=== PATIENT | female | born 1955 | race Caucasian/White ===

== ENCOUNTER 2019-02-19 22:29 | Observation (INO) | payer MEDICARE, OTHER, SELFPAY ==
--- NOTE | 2019-02-19 22:30 | DI.RAD.S_ITS ---
PROCEDURE: XR CHEST 1V INDICATIONS: chest pain TECHNIQUE: One view of the chest was acquired. COMPARISON: None. FINDINGS: Surgical changes and devices: None. Lungs and pleura: There is a calcified nodule in the left upper lung zone, compatible with an old granuloma. Lungs are clear. No pleural effusions or pneumothorax. Mediastinum: Mediastinal contours appear normal. Heart size is normal. Bones and chest wall: No suspicious bony lesions. Overlying soft tissues appear unremarkable. IMPRESSION: 1. No acute cardiac pulmonary disease. 2. An old granuloma in the left upper lung zone. Dictated by: Keiry Glez M.D. on 02/20/2019 at 8:22 Approved by: Keiry Glez M.D. on 02/20/2019 at 8:24
[2019-02-19 22:37] VITALS: BP 125/98; PULSE 92; RESP 24; TEMP 37.1; O2SAT 98; BMI 26.3
--- NOTE | 2019-02-19 22:54 | ED_ITS ---
HPI - Chest Pain General Chief Complaint: Chest Pain Stated Complaint: Chest pain, SOB Time Seen by Provider: 02/19/19 22:29 Source: patient, family and EMS Mode of arrival: EMS Limitations: no limitations History of Present Illness HPI narrative: 63-year-old female former smoker with history of hypertension presents by EMS for evaluation of fatigue, shortness of breath palpitations and chest pain. She had some episodes yesterday and then felt a bit better over the course of the day. Her symptoms returned again this afternoon at which point she called EMS for transport. She has a history of hypertension and hypothyroidism and stopped taking her medications. She denies any nausea, vomiting or diarrhea. She has had no fever or chills. she complains of episodes of periodic chest pressure and discomfort, primarily retrosternal and without provocation or palliation. The most recent 1 was just prior to her arrival MD complaint: chest pain Onset (ago): minute(s) Duration: intermittent Onset: during exertion Pain location: substernal Severity: moderate Quality: tightness and heaviness Pain radiation: none Relieving factors: nothing Exacerbating factors: nothing Associated symptoms: palpitations Treatments prior to arrival chest pain: none Related Data On Oral Contraceptives: No Home Medications Medication Instructions Recorded Confirmed enalapril-hydrochlorothiazide 1 tab PO DAILY 02/19/19 02/19/19 Allergies Allergy/AdvReac Type Severity Reaction Status Date / Time No Known Drug Allergies Allergy Verified 02/19/19 22:47 Review of Systems Constitutional Denies chills, Denies fever(s), Denies lethargy and Reports weakness Eyes Denies change in vision, Denies eye discharge, Denies irritation and Denies loss of vision ENT Ears, Nose, Mouth, and Throat: Denies change in voice, Denies neck pain and Denies sore throat Cardiovascular Reports chest pain, Denies irregular heart rhythm, Denies lightheadedness, Reports palpitations, Reports dyspnea, Denies dyspnea on exertion and Denies ort hopnea Respiratory Denies cough, Reports dyspnea, Denies dyspnea on exertion and Denies wheezing Gastrointestinal Gastrointestinal: Denies abdominal pain, Denies change in bowel habits, Denies diarrhea, Denies nausea and Denies vomiting Genitourinary Denies hematuria, Denies flank pain, Denies urinary incontinence and Denies urinary urgency Musculoskeletal Denies neck pain Integumentary/Breasts Denies pruritus, Denies erythema, Denies rash and Denies wounds Neurologic Denies confusion, Denies loss of vision and Reports weakness Psychiatric Denies anxiety, Denies confusion, Denies depression, Denies homicidal ideation and Denies suicidal ideation Endocrine Reports palpitations Hematologic/Lymphatic Denies easy bruising Allergic/Immunologic Denies wheezing [facility] Medical History (Updated 02/20/19 @ 02:02 by BALJINDER Kong) Pre-diabetes (Suspected) Acute hypokalemia (Acute) Essential hypertension (Chronic) Hypothyroid (Chronic) Hyperlipidemia (Chronic) Chest pain (Acute) Family History (Updated 02/20/19 @ 01:40 by BALJINDER Kong) Father No problems noted. Mother No problems noted. Sister Hypertension Social History household members: spouse and children Smoking Status: Former smoker Family History (Updated 02/20/19 @ 01:40 by BALJINDER Kong) Father No problems noted. Mother No problems noted. Sister Hypertension Social History household members: spouse and children Smoking Status: Former smoker Exam Narrative Exam Narrative: GENERAL: A 63-year-old female appears stated age, she is alert and oriented and obviously a bit anxious, speaking rapidly HEAD: Atraumatic. Normocephalic. No temporal or scalp tenderness. EYES: Pupils equal round and reactive. Extraocular motions intact. No scleral icterus. No injection or drainage. ENT: Nose without bleeding, purulent drainage or septal hematoma. Throat without erythema, tonsillar hypertrophy or exudate. Uvula midline. Airway patent. NECK: Trachea midline. No JVD or lymphadenopathy. Supple, nontender, no meningeal signs. CARDIOVASCULAR: Regular rate and rhythm without murmurs, gallops, or rubs. RESPIRATORY: Clear to auscultation. Breath sounds equal bilaterally. No wheezes, rales, or rhonchi. GASTROINTESTINAL: Abdomen soft, non-tender, nondistended. No hepato- splenomegaly, or palpable masses. No guarding. EXTREMITIES: No clubbing, cyanosis, or edema. No joint tenderness, effusion, or edema noted. BACK: Nontender without deformity or crepitance. No flank tenderness. NEURO: AOx3. SKIN: No rash or erythema. Initial Vital Signs Initial Vital Signs: Vital Signs Temperature 98.8 F 02/19/19 22:37 Pulse Rate 92 H 02/19/19 22:37 Respiratory Rate 24 02/19/19 22:37 Blood Pressure 125/98 H 02/19/19 22:37 Pulse Oximetry 98 02/19/19 22:37 Course Orders Ordered: ED Orders 02/19/19 22:30 XR chest 1V Stat EKG-12 Lead Stat 02/19/19 22:40 TSH [Thyroid Stimulating Hormone] Stat 02/19/19 22:46 Complete Blood Count AUTO DIFF Stat Comprehensive Metabolic Panel Stat Lipase Stat Magnesium Stat Troponin & CK Cardiac Panel Stat 02/20/19 NM exercise treadmill non nuc Routine Add on Lab Tests Stat 02/20/19 01:06 Education, smoking cessation ONGOING 02/20/19 01:09 Consult to Cardiology Routine 02/20/19 01:15 Troponin I Q6H 02/20/19 06:00 Complete Blood Count AUTO DIFF Routine Comprehensive Metabolic Panel Routine Lipid Panel Routine Magnesium Routine TSH w/ Reflex to FT4 Routine Aspirin (Aspirin Ec) 81 mg PO DAILY ENZO Enoxaparin Sodium (Lovenox) 40 mg SUBCUT DAILY ENZO Sodium Chloride (Normal Saline 0.9%) 1,000 mls @ 150 mls/hr IV CONT ENZO Last Infusion: 02/20/19 01:05 Dose: 0 mls/hr Admin: 02/19/19 22:57 Dose: 150 mls/hr Morphine Sulfate (Morphine) 2 mg IV Q5MIN PRN PRN Reason: Chest Pain Nitroglycerin (Nitrostat) 0.4 mg SL Q1PACV9 PRN PRN Reason: Chest Pain Ondansetron HCl (Zofran Odt) 4 mg PO Q8HR PRN PRN Reason: Nausea And Vomiting Discontinued Medications Aspirin (Aspirin Chew) 324 mg PO NOW ONE Stop: 02/19/19 22:30 Last Admin: 02/19/19 22:53 Dose: Not Given Potassium Chloride 40 meq/ (Sodium Chloride) 520 mls @ 130 mls/hr IV NOW ONE Stop: 02/20/19 03:21 Last Infusion: 02/20/19 00:20 Dose: 65 mls/hr Admin: 02/19/19 23:46 Dose: 130 mls/hr Potassium Chloride (Potassium Chloride) 40 meq PO NOW ONE Stop: 02/19/19 23:23 Last Admin: 02/19/19 23:35 Dose: 40 meq Reevaluation(s) Reevaluation #1: The patient continues to be largely asymptomatic during the visit in the emergency department Consultations Consultation #1: Hospitalist is happy to accept this patient Vital Signs - 8 hr 02/19/19 22:37 02/20/19 00:05 02/20/19 00:51 Temperature 98.8 F Pulse Rate 92 H 87 88 Respiratory Rate 24 14 14 Blood Pressure 125/98 H Blood Pressure [Left Arm] 119/97 H 116/68 Pulse Oximetry 98 99 96 02/20/19 01:11 02/20/19 01:20 02/20/19 01:44 Temperature 97.7 F Pulse Rate 87 81 Respiratory Rate 14 19 Blood Pressure 121/69 167/73 H Blood Pressure [Left Arm] Pulse Oximetry 100 98 96 MDM - Chest Pain Lab Data Attestation: I reviewed the patient's lab results. Result diagrams: 02/19/19 22:46 02/19/19 22:46 Lab Results 02/19/19 02/19/19 02/19/19 Range/Units 22:40 22:46 22:46 WBC 9.5 (4.5-11.0) X10^3/uL RBC 4.71 (4.0-5.2) X10^6/uL Hgb 14.3 (12.0-16.0) g/dL Hct 41.5 (36-46) % MCV 88.1 (80-100) fL MCH 30.3 (26-34) PG MCHC 34.4 (30-36) % RDW 13.0 (11.6-14.8) % Plt Count 342 (150-400) X10^3/uL Neut % (Auto) 54.9 (50-75) % Lymph % (Auto) 35.5 (25-40) % [place] % (Auto) 6.4 (3-14) % Eos % (Auto) 1.6 L (2-4) % Baso % (Auto) 1.6 (0-2) % Neut # (Auto) 5200 (8425-3144) /uL Lymph # (Auto) 3400 (5267-6589) /uL [place] # (Auto) 600 (0-900) /uL Eos # (Auto) 200 (0-450) /uL Baso # (Auto) 100 (0-100) /uL Sodium 136 L (137-145) mmol/L Potassium 2.5 L* (3.4-5.1) mmol/L Chloride 97 L (98-107) mmol/L Carbon Dioxide 25 (22-32) mmol/L BUN 28 H (7-17) mg/dL Creatinine 1.30 H (0.52-1.04) mg/dL Estimated GFR 41.1 L (>60) mL/min BUN/Creatinine Ratio 21.5 (6-22) Glucose 106 (80-110) mg/dL Calcium 10.6 H (8.4-10.2) mg/dL Magnesium (1.6-2.3) mg/dL Total Bilirubin 0.5 (0.2-1.3) mg/dL AST 29 (14-36) IU/L ALT 33 (9-52) IU/L Alkaline Phosphatase 117 (38-126) U/L Total Creatine Kinase 61 (30-135) U/L CK-MB (CK-2) TNP CK-MB (CK-2) Rel Index TNP Troponin I < 0.012 (0.01-0.034) ng/mL Total Protein 8.3 H (6.3-8.2) g/dL Albumin 4.7 (3.5-5.0) g/dL Globulin 3.6 (1.7-4.1) g/dL Albumin/Globulin Ratio 1.3 (1.0-2.8) Lipase 265 (23-300) U/L TSH 3.88 (0.47-4.68) uIU/mL 02/19/19 Range/Units 22:46 WBC (4.5-11.0) X10^3/uL RBC (4.0-5.2) X10^6/uL Hgb (12.0-16.0) g/dL Hct (36-46) % MCV (80-100) fL MCH (26-34) PG MCHC (30-36) % RDW (11.6-14.8) % Plt Count (150-400) X10^3/uL Neut % (Auto) (50-75) % Lymph % (Auto) (25-40) % [place] % (Auto) (3-14) % Eos % (Auto) (2-4) % Baso % (Auto) (0-2) % Neut # (Auto) (6252-7122) /uL Lymph # (Auto) (4606-5360) /uL [place] # (Auto) (0-900) /uL Eos # (Auto) (0-450) /uL Baso # (Auto) (0-100) /uL Sodium (137-145) mmol/L Potassium (3.4-5.1) mmol/L Chloride (98-107) mmol/L Carbon Dioxide (22-32) mmol/L BUN (7-17) mg/dL Creatinine (0.52-1.04) mg/dL Estimated GFR (>60) mL/min BUN/Creatinine Ratio (6-22) Glucose (80-110) mg/dL Calcium (8.4-10.2) mg/dL Magnesium 1.9 (1.6-2.3) mg/dL Total Bilirubin (0.2-1.3) mg/dL AST (14-36) IU/L ALT (9-52) IU/L Alkaline Phosphatase (38-126) U/L Total Creatine Kinase (30-135) U/L CK-MB (CK-2) CK-MB (CK-2) Rel Index Troponin I (0.01-0.034) ng/mL Total Protein (6.3-8.2) g/dL Albumin (3.5-5.0) g/dL Globulin (1.7-4.1) g/dL Albumin/Globulin Ratio (1.0-2.8) Lipase (23-300) U/L TSH (0.47-4.68) uIU/mL Imaging Data Chest x-ray: Attestation: I personally reviewed and interpreted this imaging study as follows: My impression: NAP ECG Data Attestation: I personally reviewed and interpreted this ECG as follows: Prior ECG tracings: not available for review Interpretation: EKG is normal sinus rhythm rate [86 ] and free of any signs of ischemia or ectopy. No ST segmental elevation or depression. No T wave inversions. Short GA 116 Discharge Plan Departure Patient Disposition: Admitted As Inpatient Clinical Impression: Acute hypokalemia, Chest pain Discharge Date/Time: 02/20/19 01:12 Interventions: ED Discharge Assessment Last Done: 02/20/19 01:11 Admit Date/Time: 02/20/19 00:25 Admit Provider: Kelley Conde
[2019-02-19] MEDS: SODIUM CHLORIDE 0.9% 1,000 ML 150 ML IV (22:57)
[2019-02-19 22:59] LABS: Add Manual Diff / Slide Review NO; Basophils Absolute Auto 100 /uL (0-100); Basophils Percent Auto 1.6 % (0-2); Eosinophils Absolute Auto 200 /uL (0-450); Eosinophils Percent Auto 1.6 % (2-4); Hematocrit 41.5 % (36-46); Hemoglobin 14.3 g/dL (12.0-16.0); Lymphocytes Absolute Auto 3400 /uL (1100-4500); Lymphocytes Percent Auto 35.5 % (25-40); Mean Corpuscular HGB Conc 34.4 % (30-36); Mean Corpuscular Hemoglobin 30.3 PG (26-34); Mean Corpuscular Volume 88.1 fL (80-100); Monocytes Absolute Auto 600 /uL (0-900); Monocytes Percent Auto 6.4 % (3-14); Neutrophils Absolute Auto 5200 /uL (1500-7000); Neutrophils Percent Auto 54.9 % (50-75); Platelet Count 342 X10^3/uL (150-400); Red Blood Cell Count 4.71 X10^6/uL (4.0-5.2); White Blood Cell Count 9.5 X10^3/uL (4.5-11.0)
[2019-02-19 23:13] LABS: Alanine Aminotransferase 33 IU/L (9-52); Albumin 4.7 g/dL (3.5-5.0); Albumin Globulin Ratio 1.3 (1.0-2.8); Alkaline Phosphatase 117 U/L (38-126); Aspartate Aminotransferase 29 IU/L (14-36); BUN Creatinine Ratio 21.5 (6-22); Bilirubin Total 0.5 mg/dL (0.2-1.3); Blood Urea Nitrogen 28 mg/dL (7-17); Calcium 10.6 mg/dL (8.4-10.2); Carbon Dioxide 25 mmol/L (22-32); Chloride 97 mmol/L (98-107); Creatine Kinase 61 U/L (30-135); Estimated Glomerular Filt Rate 41.1 mL/min (>60); Globulin 3.6 g/dL (1.7-4.1); Glucose 106 mg/dL (80-110); HEMOLYSIS < 15 (0-50); Lipase 265 U/L (23-300); Sodium 136 mmol/L (137-145); Total Protein 8.3 g/dL (6.3-8.2)
[2019-02-19 23:16] LABS: Potassium 2.5 mmol/L (3.4-5.1)
[2019-02-19 23:24] LABS: Troponin I < 0.012 ng/mL (0.01-0.034)
[2019-02-19] MEDS: POTASSIUM CHLORIDE 20 MEQ/15 ML UDC 40 MEQ PO (23:35)
[2019-02-19 23:43] LABS: Thyroid Stimulating Hormone 3.88 uIU/mL (0.47-4.68)
[2019-02-19 23:43] LABS: Magnesium 1.9 mg/dL (1.6-2.3)
[2019-02-19] MEDS: POTASSIUM CHLORIDE 40 MEQ in SODIUM CHLORIDE 0.9% 500 ML 130 ML IV (23:46)
[2019-02-20] VITALS (9 sets, daily range): BP systolic 107–167; BP diastolic 51–97; PULSE 75–89; RESP 14–19; TEMP 36.1–36.8; O2SAT 94–100; BMI 26.3
--- NOTE | 2019-02-20 01:04 | PM.HP.1 ---
History of Present Illness Date Patient Seen: 02/20/19 Time Patient Seen: 00:30 Chief complaint: Chest pain, SOB Narrative: Carmina Maldonado is a very pleasant 63-year-old female who presented today with an approximate 2 day history of chest pressure, palpitations, fatigue, and shortness of breath. She states that she has been completing house renovation and for the past 2 days has been unpacking removing boxes around. She also stated that she felt dizzy,felt like she was passing out, and felt like she was just not feeling right. She describes the pain as this primarily pressure rating it at a level 1 or less. She also felt like when she was breathing that sometime she was unable to stand up. She also states she has been drinking a lot a water. Approximately a month ago she was feeling like she got very dehydrated. This incident likely precipitated her drinking a lot of fluids. Patient is only taking enalapril/hydrochlorothiazide for blood pressure. She has previously been written for levothyroxine and Crestor. She states that she was considered to be prediabetic and was taking metformin 500 mg twice daily. She states she has had an intentional weight loss of 40 lb in the last 6 months. In the emergency department she was found to be profoundly hypokalemic with a potassium of 2.5. She was replaced with both oral and IV potassium 40 mEq each totaling 80 mEq. Patient History Medical History (Updated 02/20/19 @ 02:02 by BALJINDER Kong) Pre-diabetes (Suspected) Acute hypokalemia (Acute) Essential hypertension (Chronic) Hypothyroid (Chronic) Hyperlipidemia (Chronic) Chest pain (Acute) Family History (Updated 02/20/19 @ 01:40 by BALJINDER Kong) Father No problems noted. Mother No problems noted. Sister Hypertension Social History Smoking Status: Former smoker Family & Social History Family History (Updated 02/20/19 @ 01:40 by BALJINDER Kong) Father No problems noted. Mother No problems noted. Sister Hypertension Safety & Behavioral: Feels Safe in Current Yes Environment Tobacco & Substance use: Smoking Status Former smoker alcohol intake frequency 0-2 drinks per day Substance Use Type does not use Meds Home Medications Medication Instructions Recorded Confirmed Type enalapril-hydrochlorothiazide 1 tab PO DAILY 02/19/19 02/19/19 History Allergies Allergy/AdvReac Type Severity Reaction Status Date / Time No Known Drug Allergies Allergy Verified 02/19/19 22:47 Review of Systems Review of Systems Patient denies any vision changes, difficulty swallowing, nausea and vomiting, abdominal pain, dysuria, diarrhea or constipation, skin rashes or lesions, numbing and tingling or loss of sensation, depression or anxiety, easy bruising with bleeding. Exam Vital Signs (past 8 hours): - 02/19/19 22:37 Temperature 98.8 F Pulse Rate 92 H Respiratory Rate 24 Blood Pressure 125/98 H Pulse Oximetry 98 Oxygen Delivery Method Room Air Narrative Exam Narrative: General: Alert oriented well developed 63-year-old female, in no distress, she is quite talkative. HEENT: Head is normocephalic atraumatic Eyes: Conjunctiva is clear sclera nonicteric Neck: Supple, no JVD, full range of motion Respirations: Lung sounds are clear to auscultation bilaterally no wheezes or rhonchi CV: Regular rate and rhythm, no murmur auscultated, no rubs Abdomen: Soft and nontender with normoactive bowel tones Skin: Evidence of significant sun exposure, no lesions or rashes Neuro: Normal tactile sensitivity, alert and oriented x4, no focal deficits Extremities: Patient is ambulatory moving all 4 extremities Psych: Normal mood and affect Objective Labs Result Diagrams: 02/19/19 22:46 02/19/19 22:46 Labs: Laboratory Results - last 24 hr 02/19/19 02/19/19 02/19/19 22:40 22:46 22:46 WBC 9.5 RBC 4.71 Hgb 14.3 Hct 41.5 MCV 88.1 MCH 30.3 MCHC 34.4 RDW 13.0 Plt Count 342 Neut % (Auto) 54.9 Lymph % (Auto) 35.5 [place] % (Auto) 6.4 Eos % (Auto) 1.6 L Baso % (Auto) 1.6 Neut # (Auto) 5200 Lymph # (Auto) 3400 [place] # (Auto) 600 Eos # (Auto) 200 Baso # (Auto) 100 Sodium 136 L Potassium 2.5 L* Chloride 97 L Carbon Dioxide 25 BUN 28 H Creatinine 1.30 H Estimated GFR 41.1 L BUN/Creatinine Ratio 21.5 Glucose 106 Calcium 10.6 H Magnesium Total Bilirubin 0.5 AST 29 ALT 33 Alkaline Phosphatase 117 Total Creatine Kinase 61 CK-MB (CK-2) TNP CK-MB (CK-2) Rel Index TNP Troponin I < 0.012 Total Protein 8.3 H Albumin 4.7 Globulin 3.6 Albumin/Globulin Ratio 1.3 Lipase 265 TSH 3.88 02/19/19 22:46 WBC RBC Hgb Hct MCV MCH MCHC RDW Plt Count Neut % (Auto) Lymph % (Auto) [place] % (Auto) Eos % (Auto) Baso % (Auto) Neut # (Auto) Lymph # (Auto) [place] # (Auto) Eos # (Auto) Baso # (Auto) Sodium Potassium Chloride Carbon Dioxide BUN Creatinine Estimated GFR BUN/Creatinine Ratio Glucose Calcium Magnesium 1.9 Total Bilirubin AST ALT Alkaline Phosphatase Total Creatine Kinase CK-MB (CK-2) CK-MB (CK-2) Rel Index Troponin I Total Protein Albumin Globulin Albumin/Globulin Ratio Lipase TSH Assessment & Plan (1) Chest pain: Problem details: Patient is placed under observation for chest pain rule out. Cardiology consult is ordered and appreciated Troponins will be trended over night q.6 hours Aspirin 81 mg p.o. daily has been ordered Stress test Sagar protocol has been ordered for the morning Current visit: Yes Status: Acute (2) Hyperlipidemia: Problem details: Fasting lipid panel in the morning Current visit: Yes Status: Chronic (3) Hypothyroid: Problem details: TSH with reflex to T4 ordered for the morning Current visit: Yes Status: Chronic (4) Essential hypertension: Problem details: Enalapril hydrochlorothiazide is currently held. If she has a negative stress test and troponins would recommend an CATE inhibitor or ARB on discharge. Current visit: Yes Status: Chronic (5) Acute hypokalemia: Problem details: CMP in the a.m., replete if necessary. Current visit: Yes Status: Acute (6) Pre-diabetes: Problem details: Added on a hemoglobin A1c to her labs drawn in the ED. Current visit: Yes Status: Suspected (7) Observation for suspected condition: Problem details: Patient is placed into observation status. FEN: Heart healthy diet, IV saline lock, electrolytes in the a.m.. Code status: Full Code DVT prophylaxis: Enoxaparin 40 mg once daily Discussed with: Dr. Maurilio Paniagua, ED Time for admission: 75 minutes Current visit: Yes Status: Acute Scores CHADS-VASc Congestive heart failure: no Hypertension: yes Age 75 years or older: no Diabetes mellitus: no Stroke, TIA, or TE: no Vascular disease: no Age 65 to 74 years: yes Sex category (female): Female CHADS-VASc Score: 3 Quality AMI Clinical Trial Participant: No VTE Deep Vein Thrombosis/Pulmonary Embolism Present on Admission: No
--- NOTE | 2019-02-20 02:56 | PC.NURSE ---
63 years old female admitted to room 223 from ED via WC. Diagnosed with Hypokalemia, currently 40 meq K-riders infusing @ 65 cc/hr from ER. Pt. C/O of her IV site discomfort, no edema or erythema noted. Placed ice pack for 5 mins. & placed a warm compress & she reported IV site discomfort is gone.
--- NOTE | 2019-02-20 03:12 | PC.NURSE ---
0250 Increased infusion rate to 100 cc/hr & rechecked her again @ 0310 denies any discomfort to IV site. Infusion rate increased to full rate @ 130 cc/hr. Verified with Kaitlin Marx RN. Pt. oriented to her room upon admission,showed how to used her call light, TV & bed controls & encouraged to call staff for any assistance to the BR. Tele placed & NPO except water for Lipid Panel draw this morning. Denies any dyspnea, no SOB noted & no C/O CP. Will cont. POC & monitor.
[2019-02-20 06:16] LABS: Alanine Aminotransferase 30 IU/L (9-52); Albumin Globulin Ratio 1.3 (1.0-2.8); Alkaline Phosphatase 92 U/L (38-126); Aspartate Aminotransferase 25 IU/L (14-36); BUN Creatinine Ratio 21.8 (6-22); Bilirubin Total 0.5 mg/dL (0.2-1.3); Blood Urea Nitrogen 24 mg/dL (7-17); Calcium 9.3 mg/dL (8.4-10.2); Carbon Dioxide 24 mmol/L (22-32); Chloride 104 mmol/L (98-107); Estimated Glomerular Filt Rate 49.8 mL/min (>60); Globulin 3.1 g/dL (1.7-4.1); Glucose 102 mg/dL (80-110); HEMOLYSIS < 15 (0-50); Magnesium 1.9 mg/dL (1.6-2.3); Potassium 3.7 mmol/L (3.4-5.1); Sodium 139 mmol/L (137-145); Total Protein 7.1 g/dL (6.3-8.2)
[2019-02-20 06:18] LABS: Add Manual Diff / Slide Review NO; Basophils Absolute Auto 0 /uL (0-100); Basophils Percent Auto 0.7 % (0-2); Eosinophils Absolute Auto 200 /uL (0-450); Eosinophils Percent Auto 3.2 % (2-4); Hematocrit 37.2 % (36-46); Hemoglobin 12.8 g/dL (12.0-16.0); Lymphocytes Absolute Auto 2700 /uL (1100-4500); Lymphocytes Percent Auto 41.5 % (25-40); Mean Corpuscular HGB Conc 34.4 % (30-36); Mean Corpuscular Hemoglobin 30.3 PG (26-34); Monocytes Absolute Auto 500 /uL (0-900); Monocytes Percent Auto 7.6 % (3-14); Neutrophils Absolute Auto 3000 /uL (1500-7000); Platelet Count 294 X10^3/uL (150-400); Red Blood Cell Count 4.23 X10^6/uL (4.0-5.2); Red Cell Distribution Width 13.1 % (11.6-14.8); White Blood Cell Count 6.4 X10^3/uL (4.5-11.0)
--- NOTE | 2019-02-20 06:47 | PC.NURSE ---
Pt. reported only taking blood pressure meds. not taking her Metformin, Synthroid & Statins anymore. Bottles of her meds. in her room's closet. Declined to put her medications in the night pharmacy, instructed not to take her own home meds. She promised not to take her own pills. Will report to day RN.
[2019-02-20 06:48] LABS: Cholesterol 240 mg/dL (140-199); HDL Cholesterol 39 mg/dL (40-60); LDL Cholesterol Calculated 165 mg/dL (<100); Triglycerides 178 mg/dL (35-150)
[2019-02-20 07:10] LABS: Troponin I < 0.012 ng/mL (0.01-0.034)
[2019-02-20 07:27] LABS: Hemoglobin A1C% w Est Avg Glu 5.8 % (4.0-6.0)
[2019-02-20 08:11] LABS: Free T4, Direct Thyroxine 1.43 ng/dL (0.78-2.19)
[2019-02-20 09:16] LABS: TSH w/ Reflex to FT4 6.66 uIU/mL (0.47-4.68)
[2019-02-20] MEDS: ASPIRIN EC 81 MG TABLET PO (09:47)
[2019-02-20] MEDS: ENOXAPARIN 40 MG/0.4 ML SYRINGE SUBCUT (09:47)
[2019-02-20 11:50] LABS: Troponin I < 0.012 ng/mL (0.01-0.034)
[2019-02-20 12:09] LABS: RBC Urine None Seen (0-5/HPF)
--- NOTE | 2019-02-20 12:13 | PM.TREADMILL ---
Cardiac Stress Test Report Referral & Results Date Patient Seen: 02/20/19 Time Patient Seen: 12:13 Requesting provider: Kelley Conde Indication: Chest discomfort Rest ECG: Unremarkable Procedure Note: Today following both written and verbal informed consent, the patient was exercised according to a standard Sagar protocol. The patient exercised for a total of 6 minutes 29 seconds achieving a maximum heart rate of 138. Patient's maximum systolic blood pressure was 172. This was an estimated 7.[address]-T segment changes identified Normal heart rate and blood pressure response to exercise Functional aerobic impairment rated 0 on the active scale No dysrhythmia Impression: No evidence of ischemia Average exercise capacity Please note: Actual ECG tracings can be found in the PACS system.
[2019-02-20 12:22] LABS: Appearance Urine UA CLEAR; Bilirubin Urine UA NEGATIVE (NEGATIVE); Color Urine UA YELLOW; Glucose Urine UA NEGATIVE (Negative); Ketones Urine UA NEGATIVE (NEGATIVE); Leukocyte Esterase Urine UA NEGATIVE (NEGATIVE); Nitrite Urine UA NEGATIVE (Negative); Occult Blood Urine UA NEGATIVE (Negative); Protein Urine UA NEGATIVE (Negative); Specific Gravity Urine UA 1.015 (1.000-1.035); Urobilinogen Urine UA 0.2 E.U./dL (0.2); pH Urine UA 5.5 (4.5-8.0)
[2019-02-20 12:33] LABS: Bacteria Urine Many (>30); Culture Indicated Urine Cult Not Indicated; Squamous Epithelial Cell Urine 0-1 /HPF; WBC Urine 0-1/HPF (0-5/HPF)
--- NOTE | 2019-02-20 12:54 | P.DS_ITS ---
History of Present Illness Date Patient Seen: 02/20/19 Chief complaint: Chest pain, SOB Narrative: Written by Kelley GALE: Carmina Maldonado is a very pleasant 63-year-old female who presented today with an approximate 2 day history of chest pressure, palpitations, fatigue, and shortness of breath. She states that she has been completing house renovation and for the past 2 days has been unpacking removing boxes around. She also stated that she felt dizzy,felt like she was passing out, and felt like she was just not feeling right. She describes the pain as this primarily pressure rati ng it at a level 1 or less. She also felt like when she was breathing that sometime she was unable to stand up. She also states she has been drinking a lot a water. Approximately a month ago she was feeling like she got very dehydrated. This incident likely precipitated her drinking a lot of fluids. Patient is only taking enalapril/hydrochlorothiazide for blood pressure. She has previously been written for levothyroxine and Crestor. She states that she was considered to be prediabetic and was taking metformin 500 mg twice daily. She states she has had an intentional weight loss of 40 lb in the last 6 months. In the emergency department she was found to be profoundly hypokalemic with a potassium of 2.5. She was replaced with both oral and IV potassium 40 mEq each totaling 80 mEq. Discharge Providers Date of admission: 02/20/19 00:25 Discharge Date: 02/20/19 Discharge provider: Sherry Floyd DO Summary Discharge Diagnosis: 1. Symptomatic hypokalemia with chest pressure, present on admission. Resolved. 2. Hypertension, chronic, present on admission. Stable. 3. Hyperlipidemia, chronic, present on admission. Stable. 4. Prediabetes, chronic, present on admission. Stable. 5. History of hypothyroidism. 6. Possible obstructive sleep apnea, chronic, present on admission. Stable. Hospital Course: Carmina Maldonado is a very pleasant 63-year-old female with a past medical history significant for hypertension, hyperlipidemia, prediabetes, and hypothyroidism who presented for approximate 2 day history of chest pressure, palpitations, fatigue, and shortness of breath. 1. Symptomatic hypokalemia with chest pressure, present on admission. Resolved. -Cardiac risk factors include: Hypertension, hyperlipidemia, prediabetes, stress, significant family history, former smoker, and possible obstructive sleep apnea. -Patient had significantly low potassium at 2.5 with 2 days of chest pressure, palpitations, shortness of breath , nonspecific neurological findings, muscle cramps, and fatigue. -Repleted potassium with potassium chloride 40 mEq IV and PO. Repeat potassium 3.7. Magnesium within normal limits at 1.9. -Discontinued hydrochlorothiazide/enalapril and continued only enalapril 10 mg daily. -Discussed potassium rich foods and recommended adding fiber to diet to bulk stool as she has IBS diarrhea type. -Ordered lab work with [facility] in 3-5 days to recheck potassium level. -Serial troponin x3 negative. EKG normal sinus rhythm without acute ischemic changes such as ST elevation or depression. Monitored on telemetry without ectopy. Exercise stress test demonstrated good exercise capacity without ischemic changes. -Continued aspirin 81 mg daily and restarted atorvastatin 40 mg daily at bedtime. Patient has previously been on statin without complication. Monitor LFTs in 4-6 weeks. 2. Hypertension, chronic, present on admission. Stable. -Discontinued combination antihypertensive as above. Continue on enalapril 10 mg daily. 3. Hyperlipidemia, chronic, present on admission. Stable. -Fasting lipid panel demonstrated: Total cholesterol 240, triglycerides 178, LDL 165 (goal < 100), and HDL 39. -Restarted toward a statin 40 mg daily at bedtime. 4. Prediabetes, chronic, present on admission. Stable. -Hemoglobin A1c 5.8% -Did not restart metformin for now as patient has IBS diarrhea type and did not want to provoke hypokalemia as above. -Educated the patient extensively regarding lifestyle modification including diet and exercise and spent over 30 minutes. Provided Mediterranean diet handout. 5. History of hypothyroidism. -TSH and free T4 within normal limits. Repeat TSH incidentally elevated several hours later at 6.66 likely hemodilutional. Recommend close outpatient follow-up of thyroid function. 6. Possible obstructive sleep apnea, present on admission. Stable. -Patient snores at night with possible apnea. -Discussed obstructive sleep apnea and undue stress on heart and various consequences. Recommended outpatient sleep study. Status at Discharge Functional status at discharge: independent ambulation Overall status at discharge: patient is back to baseline Exam Vital Signs (past 8 hours): - 02/20/19 05:06 02/20/19 08:00 02/20/19 09:40 Temperature 98.2 F 96.9 F L Pulse Rate 75 78 Respiratory Rate 16 16 Blood Pressure 107/51 L 107/59 L Pulse Oximetry 97 94 95 Oxygen Delivery Method Room Air Oxygen Flow Rate 0 Narrative Exam Narrative: General: Older female lying in bed and in no acute distress, well-developed, we ll-nourished, slightly anxious and very talkative but appropriately interactive. HEENT: Normocephalic, atraumatic. External ears without defect. Pupils equal, round, and reactive to light. Anicteric sclerae, moist conjunctivae, and no lid lag. Neck: Supple with full range of motion. No jugular venous distension. No bruits. No lymphadenopathy or thyromegaly. Cardiovascular: Regular rate and rhythm without murmurs, rubs, or gallops appreciated. Pulmonary: Clear to auscultation bilaterally without crackles, wheezes, or rhonchi. Normal respiratory effort with no use of accessory muscles. Abdomen: Soft, bowel sounds present, nontender, nondistended. No hepatosplenomegaly or masses appreciated. Extremities: No clubbing, cyanosis, or edema. Skin: Normal temperature, turgor, and texture; no rash, ulcers, or subcutaneous nodules appreciated. Neurological: Cranial nerves grossly intact. Psychiatric: Normal mood and affect. Slightly anxious. Alert and oriented to person, place, and time. Objective Labs Result Diagrams: 02/20/19 05:15 02/20/19 05:15 Labs: Laboratory Results - last 24 hr 02/19/19 02/19/19 02/19/19 22:40 22:46 22:46 WBC 9.5 RBC 4.71 Hgb 14.3 Hct 41.5 MCV 88.1 MCH 30.3 MCHC 34.4 RDW 13.0 Plt Count 342 Neut % (Auto) 54.9 Lymph % (Auto) 35.5 [place] % (Auto) 6.4 Eos % (Auto) 1.6 L Baso % (Auto) 1.6 Neut # (Auto) 5200 Lymph # (Auto) 3400 [place] # (Auto) 600 Eos # (Auto) 200 Baso # (Auto) 100 Sodium 136 L Potassium 2.5 L* Chloride 97 L Carbon Dioxide 25 BUN 28 H Creatinine 1.30 H Estimated GFR 41.1 L BUN/Creatinine Ratio 21.5 Glucose 106 Hemoglobin A1c Calcium 10.6 H Magnesium Total Bilirubin 0.5 AST 29 ALT 33 Alkaline Phosphatase 117 Total Creatine Kinase 61 CK-MB (CK-2) TNP CK-MB (CK-2) Rel Index TNP Troponin I < 0.012 Total Protein 8.3 H Albumin 4.7 Globulin 3.6 Albumin/Globulin Ratio 1.3 Triglycerides Cholesterol LDL Cholesterol, Calc HDL Cholesterol Lipase 265 TSH 3.88 Free T4 Urine Color Urine Appearance Urine pH Ur Specific [place] Urine Protein Urine Glucose (UA) Urine Ketones Urine Occult Blood Urine Nitrate Urine Bilirubin Urine Urobilinogen Ur Leukocyte Esterase Urine RBC Urine WBC Ur Squamous Epith Cells Urine Bacteria Ur Culture Indicated? 02/19/19 02/20/19 02/20/19 22:46 05:15 05:15 WBC 6.4 RBC 4.23 Hgb 12.8 Hct 37.2 MCV 88.0 MCH 30.3 MCHC 34.4 RDW 13.1 Plt Count 294 Neut % (Auto) 47.0 L Lymph % (Auto) 41.5 H [place] % (Auto) 7.6 Eos % (Auto) 3.2 Baso % (Auto) 0.7 Neut # (Auto) 3000 Lymph # (Auto) 2700 [place] # (Auto) 500 Eos # (Auto) 200 Baso # (Auto) 0 Sodium Potassium Chloride Carbon Dioxide BUN Creatinine Estimated GFR BUN/Creatinine Ratio Glucose Hemoglobin A1c Calcium Magnesium 1.9 Total Bilirubin AST ALT Alkaline Phosphatase Total Creatine Kinase CK-MB (CK-2) CK-MB (CK-2) Rel Index Troponin I < 0.012 Total Protein Albumin Globulin Albumin/Globulin Ratio Triglycerides Cholesterol LDL Cholesterol, Calc HDL Cholesterol Lipase TSH Free T4 Urine Color Urine Appearance Urine pH Ur Specific [place] Urine Protein Urine Glucose (UA) Urine Ketones Urine Occult Blood Urine Nitrate Urine Bilirubin Urine Urobilinogen Ur Leukocyte Esterase Urine RBC Urine WBC Ur Squamous Epith Cells Urine Bacteria Ur Culture Indicated? 02/20/19 02/20/19 02/20/19 05:15 05:15 05:15 WBC RBC Hgb Hct MCV MCH MCHC RDW Plt Count Neut % (Auto) Lymph % (Auto) [place] % (Auto) Eos % (Auto) Baso % (Auto) Neut # (Auto) Lymph # (Auto) [place] # (Auto) Eos # (Auto) Baso # (Auto) Sodium 139 Potassium 3.7 D Chloride 104 Carbon Dioxide 24 BUN 24 H Creatinine 1.10 H Estimated GFR 49.8 L BUN/Creatinine Ratio 21.8 Glucose 102 Hemoglobin A1c Calcium 9.3 Magnesium 1.9 Total Bilirubin 0.5 AST 25 ALT 30 Alkaline Phosphatase 92 Total Creatine Kinase CK-MB (CK-2) CK-MB (CK-2) Rel Index Troponin I Total Protein 7.1 Albumin 4.0 Globulin 3.1 Albumin/Globulin Ratio 1.3 Triglycerides 178 H Cholesterol 240 H LDL Cholesterol, Calc 165 H HDL Cholesterol 39 L Lipase TSH 6.66 H Free T4 1.43 Urine Color Urine Appearance Urine pH Ur Specific [place] Urine Protein Urine Glucose (UA) Urine Ketones Urine Occult Blood Urine Nitrate Urine Bilirubin Urine Urobilinogen Ur Leukocyte Esterase Urine RBC Urine WBC Ur Squamous Epith Cells Urine Bacteria Ur Culture Indicated? 02/20/19 02/20/19 02/20/19 05:15 11:00 11:10 WBC RBC Hgb Hct MCV MCH MCHC RDW Plt Count Neut % (Auto) Lymph % (Auto) [place] % (Auto) Eos % (Auto) Baso % (Auto) Neut # (Auto) Lymph # (Auto) [place] # (Auto) Eos # (Auto) Baso # (Auto) Sodium Potassium Chloride Carbon Dioxide BUN Creatinine Estimated GFR BUN/Creatinine Ratio Glucose Hemoglobin A1c 5.8 Calcium Magnesium Total Bilirubin AST ALT Alkaline Phosphatase Total Creatine Kinase CK-MB (CK-2) CK-MB (CK-2) Rel Index Troponin I < 0.012 Total Protein Albumin Globulin Albumin/Globulin Ratio Triglycerides Cholesterol LDL Cholesterol, Calc HDL Cholesterol Lipase TSH Free T4 Urine Color Yellow Urine Appearance Clear Urine pH 5.5 Ur Specific [place] 1.015 Urine Protein Negative Urine Glucose (UA) Negative Urine Ketones Negative Urine Occult Blood Negative Urine Nitrate Negative Urine Bilirubin Negative Urine Urobilinogen 0.2 Ur Leukocyte Esterase Negative Urine RBC None seen Urine WBC 0-1/hpf Ur Squamous Epith Cells 0-1 /hpf Urine Bacteria Many (>30) H Ur Culture Indicated? Cult not indicated Discharge Plan Discharge Plan Patient Disposition: Home Discharge comment: You are being discharged home. Your EKG, cardiac enzymes, and exercise stress test did not indicate heart attack or impending heart attack. Please follow-up with Dr. Lai regarding your hospitalization and to check your potassium level. You will then need to schedule an additional appointment to establish care with a provider in the area. Please have your potassium checked in the next 3-5 days with the lab slip provided. If you are unable to get into a provider please go to the walk-in clinic to have this performed and if low please see a provider there. You were prescribed aspirin 81 mg daily and atorvastatin 40 mg daily at bedtime for cholesterol. Your blood pressure medication was changed to enalapril only without hydrochlorothiazide. I did not start metformin for now as this can cause diarrhea and potentially provoke low potassium. Recommend increasing fiber in your diet with Metamucil for example to help bulk stool. Your medications, medical conditions, and labs need to be monitored by a provider. I also recommend a sleep study in the near future to assess you for obstructive sleep apnea. Discharge Med Rec/Prescriptions Prescriptions: New aspirin 81 mg Tablet,Delayed Release (Dr/Ec) 81 mg PO DAILY Qty: 30 RF: 0 atorvastatin 40 mg tablet 40 mg PO BEDTIME Qty: 30 RF: 0 enalapril maleate 10 mg tablet 10 mg PO DAILY Qty: 30 RF: 0 Discontinued enalapril-hydrochlorothiazide 10-25 mg Tablet 1 tab PO DAILY RF: 0 Other Ambulatory Orders: Basic Metabolic Panel (Routine) Timeframe: 1 Week Location: Laboratory Ordered By: Sherry Floyd Follow up/Referrals: Sebastián Lai MD [Physician] - 02/26/19 9:00 am Provider Discharge Instructions Diet: Carb-consistent/Diabetic, Low-fat, Low-sodium and Low-cholesterol Activity: Activity as tolerated Visit Report/Discharge Packet Instructions: Bulking Up on Fiber, The Mediterranean Diet and Good Health, High-Fiber Diet, DI for Hypokalemia Discharge Data Attending Provider: Kelley Conde Admit Date/Time: 02/20/19 00:25 Quality AMI Clinical Trial Participant: No VTE Deep Vein Thrombosis/Pulmonary Embolism Present on Admission: No
--- NOTE | 2019-02-20 13:12 | CM.IDA ---
Discharge Planning/Care Management CM Discharge Assessment Start: 02/20/19 13:07 Freq: Status: Active Protocol: Document 02/20/19 13:07 JAI (Rec: 02/20/19 13:12 JAI [id number]) Discharge Planning Assessment Assigned Food Preparation Kitchen Aide EDYTA Del Cid DPOA/Assigned Designee Name Emigdio Maldonado, spouse Ritesh Maldonado, son Contact Information [phone], son- Advance Directives? No Advance Directives on File No History Provided By Patient Medical Record Prior Living Arrangements House Household Members spouse children Type of transporation used prior to Drives own vehicle admit Independent with ADL's Yes Is patient alert and oriented? Yes Barriers to Discharge No Comment Pt under observation, presenting w/chest pain and in need of cardio w/u. Payer: Medicare. Reviewed chart. Pt off the floor for stress test. According to chart review, no SW needs are anticipated. DC Summary in draft form, likely DC back home today, w/family. EDYTA Vale Discharge Plan Home Transportation Arrangement Family Referrals Initiated None needed Review Status In Process
--- NOTE | 2019-02-20 14:43 | PC.NURSE ---
Discharge Pt denies pain this shift. Up independently in room. Tele in place. PIV and tele removed prior to d/c. d/c instructions provided to pt. Aware to get labs done on 02/24 and to go to apt with Dr Lai on 02/26. Aware to contact Dr Lai or return to ED if any additional issues arrise. Pt left with all belongings with her. Pt taken downstairs in w/c with [employer]BER escort.
== END 2019-02-20 14:30 | disposition home or self-care (01) ==
LOC: ED 02-20 00:20 → AC 02-20 00:26
PROVIDERS: Internal Medicine; Admitting Provider Nurse Practitioner Family; Emergency Provider Emergency Medicine; Visit Provider Nurse Practitioner Family
DX: E87.6 Hypokalemia (principal); R07.9 Chest pain, unspecified; I10 Essential (primary) hypertension; E78.5 Hyperlipidemia, unspecified; R73.03 Prediabetes; E03.9 Hypothyroidism, unspecified; Z87.891 Personal history of nicotine dependence
CPT/HCPCS: 36415; 71045; 80053; 80061; 81001; 82550; 82553; 83036; 83690; 83735; 84439; 84443; 84484; 85025; 93005; 93016; 93017; 93018; 96360; 96361; 99283; 99285; G0378; J1650; J3480

== ENCOUNTER → 2024-01-23 12:44 | Outpatient (CLI) | payer MEDICARE, OTHER, SELFPAY ==
[2019-02-20 01:44] VITALS: BMI 26.3
--- NOTE | 2024-01-23 12:46 | DI.RAD.S_ITS ---
Bone Density Report Name: ROSA HANSEN Age: 68 Sex: Female Ethnicity: White Date of : 1955 Indication: postmenopausal; screening for osteoporosis; rheumatoid arthritis; Referring Provider: RENA ORTA Study: Bone densitometry was performed. Exam Date: January 23, 2024 Accession number: [id number] Bone Density: Region BMD T-score Z-score Classification AP Spine(L1-L4) 0.916 -1.2 1.0 Osteopenia Femoral Neck (Left) 0.703 -1.3 0.5 Osteopenia Total Hip (Left) 0.855 -0.7 0.8 Normal Femoral Neck (Right) 0.671 -1.6 0.2 Osteopenia Total Hip (Right) 0.858 -0.7 0.8 Normal Total Hip Mean 0.856 -0.7 0.8 Normal World Health Organization criteria for BMD impression classify patients as: Normal (T-score at or above -1.0), Osteopenia (T-score between -1.0 and -2.5), or Osteoporosis (T-score at or below -2.5). 10-year Fracture Risk(1): Major Osteoporotic Fracture 14% Hip Fracture 2.4% Reported Risk Factors: [place] (), Neck BMD=0.671, BMI=25.7, rheumatoid arthritis (1) FRAX(R) Version 3.08. Fracture probability calculated for an untreated patient. Fracture probability may be lower if the patient has received treatment. Impression: The patient has low bone mass, based on the Right Femoral Neck T-score. The patient has an estimated ten-year risk of hip fracture of 2.4% and an estimated ten-year risk of major fracture of 14%, based on the WHO FRAX algorithm. Discussion: BONE DENSITY IS LOW AT ONE OR MORE SKELETAL SITES. This patient's lowest T-score is low at one or more skeletal sites. It meets the World Health Organization's (WHO) criteria for low bone mass (T-score between -1.0 and -2.5). The patient's 10-year risk of fracture as calculated by FRAX is less than the threshold where pharmacological therapy is recommended by the National Osteoporosis Foundation (NOF). However, all treatment decisions require clinical judgment and consideration of individual patient factors, including patient preferences, comorbidities, previous drug use, risk factors not captured in the FRAX model (e.g., frailty, falls, vitamin D deficiency, increased bone turnover, interval significant decline in bone density) and possible under or overestimation of fracture risk by FRAX. The patient should follow a healthful lifestyle (good nutrition with adequate calcium and vitamin D, and appropriate weight-bearing exercise). Follow-Up: Consider repeating this study in 2 to 3 years to reassess this patient's status, or sooner if there is some new clinical indication. Reported by: TRINITY ALBERTO M.D. on 01/23/2024 1:35:00 PM.
== END ==
PROVIDERS: Referring Provider Nurse Practitioner Family; Visit Provider Nurse Practitioner Family
DX: N95.8 Other specified menopausal and perimenopausal disorders (principal); Z13.820 Encounter for screening for osteoporosis; M85.851 Other specified disorders of bone density and structure, right thigh
CPT/HCPCS: 77080